=== PATIENT | male | born 1985 | race Two or more races ===

== ENCOUNTER 2022-09-05 07:32 | Day surgery (SDC) | payer MEDICAID ==
[2022-08-31 16:35] LABS: CLARITY,URINE CLEAR (Clear); COLOR,URINE YELLOW (Yellow); GLUCOSE, URINE NEGATIVE (Neg); KETONES,URINE TRACE mg/dl (Neg); LEUKOCYTE ESTERASE ,URINE NEGATIVE (Neg); NITRITES, URINE NEGATIVE (Neg); OCCULT BLOOD,URINE TRACE-INTACT (Neg); PH,URINE 5.5 (4.8-8.0); PROTEIN,URINE NEGATIVE (Neg); UROBILINOGEN,URINE 0.2 E.U/dL (0.2-1.0)
[2022-08-31 16:38] LABS: UA COLLECTION TYPE CLN CATCH MIDSTREAM
[2022-08-31 16:41] LABS: BASOPHILS % (AUTO) 0.4 % (0-1); EOSINOPHILS # (AUTO) 0.3 X10'3 (0-0.9); EOSINOPHILS % (AUTO) 3.1 % (0-6); HEMATOCRIT 46.8 % (42.0-52.0); LYMPHOCYTES # (AUTO) 2.4 X10'3 (1.1-4.8); LYMPHOCYTES % (AUTO) 24.6 % (21-51); MEAN CORPUSCULAR HEMOGLOBIN 32.4 PG (27.0-31.0); MEAN CORPUSCULAR HGB CONC 34.3 g/dL (33.0-36.5); MEAN CORPUSCULAR VOLUME 94.4 FL (78-98); MEAN PLATELET VOLUME 9.3 FL (7.4-10.4); MONOCYTES # (AUTO) 0.8 X10'3 (0-0.9); MONOCYTES % (AUTO) 7.8 % (2-12); NEUTROPHILS # (AUTO) 6.3 X10'3 (1.8-7.7); NEUTROPHILS % (AUTO) 64.1 % (42-75); PLATELET COUNT 243 X10'3 (140-440); RED BLOOD COUNT 4.96 X10'6 (4.70-6.10); RED CELL DISTRIBUTION WIDTH 13.7 % (11.5-14.5); WHITE BLOOD COUNT 9.9 X10'3 (4.5-11.0)
[2022-08-31 16:43] LABS: ALANINE AMINOTRANSFERASE 37 U/L (12-78); ALBUMIN 3.9 G/DL (3.4-5.0); ALKALINE PHOSPHATASE 142 IU/L (46-116); ANION GAP 9 (8-16); ASPARTATE AMINO TRANSFERASE 33 U/L (10-37); BILIRUBIN,TOTAL 0.3 MG/DL (0.1-1.0); BLOOD UREA NITROGEN 21 MG/DL (7-18); BUN/CREATININE RATIO 20.4 (5.4-32.0); CALCIUM 9.1 MG/DL (8.5-10.1); CHLORIDE 103 MMOL/L (99-107); CREATININE 1.03 MG/DL (0.60-1.10); GLUCOSE 80 MG/DL (70-104); POTASSIUM 3.4 MMOL/L (3.5-5.1); SODIUM 139 MMOL/L (135-145); TOTAL CARBON DIOXIDE 27.4 MMOL/L (24-32); TOTAL PROTEIN 7.9 G/DL (6.4-8.2); eGFR 82 ML/MIN
[2022-08-31 16:47] LABS: BACTERIA,URINE NONE SEEN /HPF (Neg); MUCUS STRANDS NONE SEEN /LPF (Neg); RBC,URINE 0-2 /HPF (0-2); SQUAMOUS EPITHELIAL CELL,UR NONE SEEN /LPF (FEW); WBC,URINE NONE SEEN /HPF (0-4)
[2022-09-05] VITALS (7 sets, daily range): BP systolic 119–156; BP diastolic 66–131
[~2022-09-05] VITALS: Ht 167.6 cm; Wt 91.4 kg
[~2022-09-05 07:32] MED LIST: NO HOME MEDS; ceFAZolin inj. 2,000 MG in dextrose 5%-water 100 ML IV ONE; famotidine 20mg tablet PO ONE; ringers solution, lacted 1,000 ML IV SCH
[2022-09-05] MEDS ORDERED: BUPIVAcaine/PF 2.5 mg/ml (0.25%) 30ml vial ONE (09:10)
[2022-09-05] MEDS ORDERED: fentaNYL/PF 50MCG/1 ML 2ML syringe ONE ×2 (10:07→10:58)
[2022-09-05] MEDS ORDERED: midazolam 1 mg/ML 2ml injection ONE (10:07)
[2022-09-05] MEDS ORDERED: ondansetron/PF 4mg/2ml inj ONE (10:37)
[2022-09-05] MEDS ORDERED: dexamethasone sod phosphate 4mg/ml inj. ONE (10:37)
[2022-09-05] MEDS ORDERED: rocuronium 10mg/ml inj IV ONE ×2 (10:37→11:49)
[2022-09-05] MEDS ORDERED: LIDOcaine 1%/PF 5ML 10 MG/ML VIAL ONE (10:37)
[2022-09-05] MEDS ORDERED: propofol inj 20 ML IV ONE (10:37)
[2022-09-05] MEDS ORDERED: glycopyrrolate 0.2mg/ml inj ONE (12:04)
[2022-09-05] MEDS ORDERED: neostigmine methylsulfate 1 MG/ML 10ml vial ONE (12:04)
[2022-09-05] MEDS ORDERED: morphine 2 MG/ML inj. syringe IV PRN (12:10)
[2022-09-05] MEDS ORDERED: acetaminophen 1,000mg/100ml IV 100 ML IV PRN (12:10)
[2022-09-05] MEDS ORDERED: hydrALAZINE 20mg/ml inj. IV PRN (12:10)
[2022-09-05] MEDS ORDERED: ketorolac trometh. 30mg/ml inj. IV ONE (12:10)
[2022-09-05] MEDS ORDERED: meperidine/PF 25mg/ml syringe IV PRN ×3 (12:10)
[2022-09-05] MEDS ORDERED: labetalol 20mg/4ml (5mg/ml) syringe IV PRN (12:10)
[2022-09-05] MEDS ORDERED: ondansetron/PF 4mg/2ml inj IV PRN (12:10)
[2022-09-05] MEDS ORDERED: proCHLORperazine 10 MG/2 ml inj IV PRN (12:10)
[2022-09-05] MEDS ORDERED: ringers solution, lacted 1,000 ML IV SCH (12:10)
[2022-09-05] MEDS ORDERED: morphine 4 MG/ML inj SYRINge IV PRN (12:10)
--- NOTE | 2022-09-05 12:11 | NUR ---
Received from OR via , accompanied by Anesthesiologist SALMA and report given by Anesthesiolgist. PT DROWSY AND ABLE TO FOLLOW COMMANDS. PT IN PAIN AND QUITE UNCOMFORTABLE. BROUGHT TO BEDSIDE TO ASSIST WITH LANGUAGE BARRIER. VSS. 02 ABLE TO BE REMOVED. Addendum: 09/05/22 at 1221 by Faiza Silva RN Amended: Links added.
--- NOTE | 2022-09-05 14:41 | NUR ---
I HAVE REVIEWED D/C INSTRUCTIONS WITH PATIENT AND SPOUSE AND THEY HAVE VERBALIZED UNDERSTANDING OF INSTRUCTIONS. PATIENT D/C HOME WITH ALL BELONGINGS AND FAMILY GAVE TRANSPORT PT NEEDED TO VOID BEFORE D/C AND TOOK SOME TIME TO ACCOMPLISH THIS. REMOVED FROM VITAL MACHINE TO ALLOW PT TO WALK ABOUT AND DRINK FLUIDS TO ENCOURAGE VOIDING. BLADDER SCANNED FOR 448 ML'S OF URINE, PT VOIDED 270 ML'S OF URINE. Addendum: 09/05/22 at 1501 by Faiza Silva RN Amended: Links added.
== END 2022-09-05 14:41 | disposition home or self-care (01) ==
LOC: PAS 07:32
PROVIDERS: ATTEND Surgery
DX: K40.90 Unilateral inguinal hernia, without obstruction or gangrene, not specified as recurrent (principal); F17.210 Nicotine dependence, cigarettes, uncomplicated; Z79.01 Long term (current) use of anticoagulants; Z79.899 Other long term (current) drug therapy; Z98.890 Other specified postprocedural states
CPT/HCPCS: 36415; 49650; 80053; 81001; 82948; 85025; C1758; C1781; J0131; J0690; J1100; J2175; J2250; J2270; J2405; J2704; J2710; J3010; J3490; J7030; J7060; J7120; Z7506; Z7508; Z7512; 99152; 99153; A4215; A4618; G0500